=== PATIENT | male | born 1995 | race Caucasian/White ===

== ENCOUNTER 2019-08-30 11:56 | Emergency (ER) | payer SELFPAY ==
[2019-08-30 11:57] VITALS: BP 124/78; PULSE 75; RESP 16; TEMP 36.6; O2SAT 97; BMI 33.7
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
--- NOTE | 2019-08-30 13:18 | ED.DEP ---
ED Disposition - Plan for ED Patient: Instructions: Ac Joint Sprain Referrals: Merrill Rod DO [STAFF PHYSICIAN] -
== END 2019-08-30 13:41 | disposition home or self-care (01) ==
PROVIDERS: Emergency Provider Emergency Medicine
DX: S43.102A Unspecified dislocation of left acromioclavicular joint, initial encounter (principal); V89.2XXA Person injured in unspecified motor-vehicle accident, traffic, initial encounter; Y93.89 Activity, other specified; M54.5 Low back pain; Z72.0 Tobacco use
CPT/HCPCS: 72100; 73030; 99284

== ENCOUNTER 2019-09-18 14:54 | Emergency (ER) | payer SELFPAY ==
[2019-09-18 14:55] VITALS: BP 147/87; PULSE 81; RESP 15; TEMP 36.6; O2SAT 99; BMI 36.0
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
== END 2019-09-18 16:06 | disposition home or self-care (01) ==
PROVIDERS: Emergency Provider Emergency Medicine
DX: S39.012A Strain of muscle, fascia and tendon of lower back, initial encounter (principal); V89.2XXA Person injured in unspecified motor-vehicle accident, traffic, initial encounter; Y93.89 Activity, other specified; Y92.410 Unspecified street and highway as the place of occurrence of the external cause; F17.200 Nicotine dependence, unspecified, uncomplicated
CPT/HCPCS: 72100; 99282

== ENCOUNTER 2023-06-01 12:01 | Emergency (ER) | payer OTHER, SELFPAY ==
[2023-06-01 12:02] VITALS: BP 127/85; PULSE 79; RESP 18; TEMP 36.6; O2SAT 100; BMI 33.9
--- NOTE | 2023-06-01 12:15 | ED.VIS.LOWEX ---
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 When he went to stand up he felt a pop in his right knee followed by pain. She states has not been able to bear weight. He has difficulty extending the knee. Onset/Context/Timing Onset: Today and Hours Context: Sudden Onset Timing: Continuous Quality of Pain: Aching Location: Right knee area of most discomfort in the area of the medial femoral condyl Current Severity: Mild Maximum Severity: Severe Worsened by: Weightbearing and extension Relieved by: Nothing Associated Symptoms Associated Symptoms: Positive for Loss of Funtion; Negative for Parasthesia or Weakness Narrative Narrative: Patient is a 27-year-old male no significant past medical history on no medication and has no allergies. He presents with right knee pain when he luiz from a kneeling position to a standing position. He felt a pop. He developed instant continuous pain and was not able to bear weight. He denies history of prior injury. He localizes the area of most discomfort over the medial femoral condyle. He denies paresthesia, anesthesia or motor weakness. Tetanus Immunization: 5-10 years Prior similar symptoms: No Recent Illness/Hospitalization: No PFSH PFSH Medical History (Updated 06/01/23 @ 12:[address] Kvng Joseph MD) No acute medical problems Medical History no medical history no medical history Home Medications hydrocodone-acetaminophen 5-325mg 5mg-325mg 1 tab PO Q6H PRN PRN Pain 3 days #10 TABLETS 06/01/23 [Rx Last Taken Unknown] nitrofurantoin monohydrate/macrocrystals 100 mg capsule 100 mg PO Q12 #10 CAPSULES 06/01/23 [Rx Last Taken Unknown] Allergy/AdvReac Type Severity Reaction Status Date / Time No Known Allergies Allergy Verified 06/01/23 12:02 Surgical History no surgical history no surgical history Social History (Updated 06/01/23 @ 12:[address] Kvng Joseph MD) household members: significant other Smoking Status: Current every day smoker tobacco type: cigarettes alcohol intake: current alcohol intake frequency: a few times a month substance use type: does not use ROS ROS ED Constitutional Constitutional ED: Denies chills, fever(s), subjective, sweats or weight loss Musculoskeletal Musculoskeletal: Reports other Details: Right knee pain. ; Denies arthralgias, back pain, myalgias or neck pain Integumentary Denies Abrasions or rash Neurologic Neurologic: Denies headache(s), paresthesias or weakness Hematologic/Lymphatic Hematologic/Lymphatic: Denies easy bleeding or easy bruising EXAM Physical Exam Const Vital Signs: 06/01/23 12:02 Temperature 97.8 F Temperature Source Temporal Pulse Rate 79 Respiratory Rate 18 Blood Pressure 127/85 H Blood Pressure Mean 99 Pulse Ox 100 Oxygen Delivery Method Room Air Positive well nourished and well developed General Appearance ED: well developed; Negative for NAD HEENT Reports moist mucous membranes normocephalic and atraumatic Eyes PERRL Eyes Narrative: Extract muscle intact. Sclera is anicteric. Neck full ROM and supple Resp normal respiratory effort Cardio regular rate and regular rhythm Extremity Negative for normal to inspection or full ROM Extremity Narrative: There is swelling of the right knee compared to left. Area of fullness appears to be superior and medial to the right patella. There is joint line tenderness bilaterally. He is only able to extend 160 degrees. He is able to flex to 90 degrees. The patella is not ballotable. There may be a small effusion suprapatella. Varus valgus stress testing causes discomfort on the lateral side with direct pressure. There is no laxity. Cosmo's test was negative. Unable to perform modified Zev's test. DP and PT pulse are palpable. There is no pain or fullness noted in the popliteal fossa. General Extremety ED: Yes weight-bearing difficulty General Extremity: weight-bearing difficulty Neuro oriented x3, CN's II-XII intact bilaterally, moves all extremities and no sensory deficits noted Sensorium / Orientation: alert Psych mental status grossly normal Skin no wounds Lesions: no lesions Rashes: no rashes MDM MDM MDM Narrative Medical decision making narrative: X-ray was obtained to determine if there is an effusion or fracture. Suspect patient may have a meniscal injury. Exam was limited the fact that he has limited range of motion and pain. X-rays were obtained. He was medicated with NSAID and opiate analgesic orally. Radiography Chest X-Ray - ED: Read by ED Physician (4 view x-ray of the right knee was independently reviewed interpreted by me at 1228. There is a small suprapatellar effusion noted. Otherwise, the x-ray is unremarkable. There is no fracture, subluxation dislocation or bony structure abnormality. There is no asymmetry of the joint.) Discharge Plan Triage Chief Complaint: Lower Extremity Injury ED Provider: Kvng Joseph Dx/Rx/DC Orders Clinical Impression: Inability to ambulate due to right knee, Traumatic effusion of knee joint Instructions: ED Knee Effusion Prescriptions: New hydrocodone-acetaminophen [hydrocodone-acetaminophen] 5-325 mg tablet 1 tab PO Q6H PRN PRN (Reason: Pain) 3 Days Qty: 10 0RF nitrofurantoin monohyd/m-cryst [nitrofurantoin monohyd/m-cryst] 100 mg capsule 100 mg PO Q12 Qty: 10 0RF Primary Care Provider: Care Physician,No Primary Referrals: Care Physician,No Primary [Primary Care Provider] - Activity Restrictions/Additional Instructions: [facility]. Weight-bear as tolerated Apply ice 6-10 times a day Disposition Disposition: Home, Self Care
[2023-06-01] MEDS: HYDROcodone Bitartrate/Apap 5/325 Tablet PO (12:17)
[2023-06-01] MEDS: Naproxen 500 MG Tablet PO (12:17)
--- NOTE | 2023-06-01 12:20 | RAD_ITS ---
INDICATION: Injury/Pain EXAMINATION/TECHNIQUE: X-RAY - RIGHT XR Knee Complete 4 Views or More 4 VIEWS COMPARISON: No relevant prior comparison study available FINDINGS: SOFT TISSUES: No soft tissue swelling or gas. No radiopaque foreign body. BONES/JOINTS: No acute fracture or subluxation.. Normal alignment. There is lateral patellar tilt. There are mild degenerative changes of the lateral compartment and the patellofemoral articulation. No sclerotic or destructive changes observed. RAD/Knee 4 or More Views IMPRESSION: Lateral patellar tilt. Mild degenerative changes. Electronically Signed: Lakesha Gaitan MD at 12:40 EDT ,
[2023-06-01 12:56] VITALS: RESP 17
== END 2023-06-01 12:58 | disposition home or self-care (01) ==
LOC: ED 12:55
PROVIDERS: Emergency Provider Emergency Medicine; Visit Provider Emergency Medicine
DX: M25.461 Effusion, right knee (principal); F17.210 Nicotine dependence, cigarettes, uncomplicated; R26.2 Difficulty in walking, not elsewhere classified
CPT/HCPCS: 73564; 99284

== ENCOUNTER 2024-01-11 08:37 | Emergency (ER) | payer OTHER, SELFPAY ==
[2024-01-11 08:38] VITALS: BP 143/93; PULSE 69; RESP 16; TEMP 37.1; O2SAT 100; BMI 37.5
--- NOTE | 2024-01-11 08:42 | ED.VIS.GI ---
HPI HPI - GI History of Present Illness Chief Complaint: Abd Pain Informant: patient Abdominal Pain/Flank Pain Onset: Weeks Context: Gradual Onset Timing: Continuous (Since yesterday) Quality: Cramping Location: LUQ Worsened by: Nothing Relieved by: Nothing Nausea/Vomiting/Emesis GI Symptom: Positive for Nausea and Vomiting Diarrhea/Melena/Hematochezia GI Symptom: Negative for Diarrhea, Melena or Hematochezia Narrative Narrative: Patient presents with abdominal pain that has gradually gotten worse over the past couple weeks. Patient states that since yesterday has been constant. Patient describes the pain as cramping. Patient states pain is mainly over the left upper abdomen. Patient states nothing makes it better nothing makes it worse. Patient admits to some nausea and vomiting. Patient denies any diarrhea, melena, or hematochezia. Patient admits to some urinary frequency but denies any dysuria or hematuria. Patient admits to some subjective chills but denies any fevers. PFSH PFSH Medical History No acute medical problems no medical history Home Medications hydrocodone-acetaminophen 5-325mg 5mg-325mg 1 tab PO Q6H PRN PRN Pain 3 days #10 TABLETS 06/01/23 [Rx Last Taken Unknown] nitrofurantoin monohydrate/macrocrystals 100 mg capsule 100 mg PO Q12 #10 CAPSULES 06/01/23 [Rx Last Taken Unknown] omeprazole 20 mg capsule,delayed release 20 mg PO DAILY #30 CAPSULES 01/11/24 [Rx Last Taken Unknown] Allergy/AdvReac Type Severity Reaction Status Date / Time No Known Allergies Allergy Verified 01/11/24 08:37 Surgical History no surgical history no surgical history Social History household members: significant other Smoking Status: Current every day smoker tobacco type: cigarettes alcohol intake: current alcohol intake frequency: a few times a month substance use type: does not use ROS ROS ED Constitutional Constitutional ED: Reports chills; Denies fever(s) Eyes Eyes: Denies blurry vision or change in vision ENT ENT ED: Denies rhinorrhea or sore throat Cardiovascular Cardiovascular: Denies chest pain or palpitations Respiratory/Chest Respiratory/Chest: Denies cough or dyspnea Gastrointestinal Gastrointestinal: Reports abdominal pain, nausea and vomiting Genitourinary Genitourinary ED: Reports urinary frequency; Denies dysuria or hematuria Musculoskeletal Musculoskeletal: Reports neck pain; Denies back pain Integumentary Reports rash; Denies abscess Neurologic Neurologic: Denies headache(s) or weakness Allergic/Immunologic Allergic/Immunologic ED: Denies mouth swelling or urticaria EXAM Physical Exam Const Vital Signs: 01/11/24 08:38 01/11/24 10:38 Temperature 98.7 F Temperature Source Temporal Pulse Rate 69 75 Respiratory Rate 16 16 Blood Pressure 143/93 H 137/63 H Blood Pressure Mean 109 87 Pulse Ox 100 98 Oxygen Delivery Method Room Air Room Air Positive well nourished and well developed General Appearance ED: well developed and NAD HEENT Reports moist mucous membranes Neck supple and no JVD Resp normal respiratory effort and clear to auscultation bilaterally Cardio regular rate and regular rhythm GI non-distended Palpation: soft and tender LUQ; Negative for guarding or rebound tenderness present Extremity full ROM General Extremety ED: Negative for edema or tenderness General Extremity: Negative for edema Neuro CN's II-XII intact bilaterally, moves all extremities and no sensory deficits noted Sensorium / Orientation: alert Motor Exam: strength 5/5 throughout Psych mental status grossly normal MDM MDM MDM Narrative Medical decision making narrative: Differential diagnosis includes gastritis, peptic ulcer disease, ureteral calculus, pyelonephritis, pancreatitis, cholecystitis, cholelithiasis, and viral illness. CBC will be obtained to assess for leukocytosis and anemia. Comprehensive metabolic profile will be obtained to assess for hepatic function, renal function, and electrolyte abnormality. Lipase will be obtained to assess for pancreatitis. Urinalysis will be obtained to assess for urinary tract infection. CT scan of the abdomen pelvis will be obtained to assess for ureteral calculus, pyelonephritis, and splenomegaly. Lab Data Attestation: I reviewed the patient's lab results. Lab results narrative: CBC was reviewed and was within normal limits. Comprehensive metabolic profile was reviewed and was within normal limits. Lipase was reviewed and was normal. Urinalysis was reviewed. There is no evidence of urinary tract infection or hematuria. Labs: Laboratory Results - last 24 hr 01/11/24 10:36 WBC 6.2 RBC 5.16 Hgb 15.5 Hct 44.2 MCV 85.7 MCH 30.0 MCHC 35.1 RDW Std Deviation 39.2 RDW Coeff of Farhad 12.5 Plt Count 230 MPV 9.4 Immature Gran % (Auto) 0.300 Neut % (Auto) 51.4 Lymph % (Auto) 38.5 [place] % (Auto) 6.6 Eos % (Auto) 2.7 Baso % (Auto) 0.5 Absolute Neuts (auto) 3.2 Absolute Lymphs (auto) 2.39 Nucleated RBC % 0 Sodium 140 Potassium 4.1 Chloride 110 H Carbon Dioxide 26.0 Anion Gap 4 L BUN 14 Creatinine 1.02 Estim Creat Clear Calc 141.63 Est GFR (MDRD) Af Amer 113 Est GFR (MDRD) Non-Af 94 BUN/Creatinine Ratio 13.7 Glucose 91 Calcium 9.3 Total Bilirubin 0.60 AST 28 ALT 45 Alkaline Phosphatase 66 Total Protein 7.4 Albumin 4.0 Globulin 3.4 Albumin/Globulin Ratio 1.2 Lipase 36 Urine Color Straw Urine Clarity Clear Urine pH 6.0 Ur Specific [place] 1.010 Urine Protein Negative Urine Glucose (UA) Normal Urine Ketones Negative Urine Occult Blood Negative Urine Nitrite Negative Urine Bilirubin Negative Urine Urobilinogen Normal Ur Leukocyte Esterase Negative Urine RBC 0 SEEN Urine WBC 0 SEEN Ur Squamous Epith Cells 0 SEEN Urine Bacteria 0 SEEN Urine Mucus 0 SEEN Radiography Diagnostic Testing: Clinical Impression(s) from Imaging Studies Abdomen/Pelvis CT 01/11/24 10:33 IMPRESSION: Mild degree of gallbladder wall thickening although the bladder is not completely distended at this time. Minimal bibasilar linear atelectasis. Electronically Signed: Eduard Carranza MD at 11:23 EST , CT scan of the abdomen pelvis was obtained. There is mild degree of gallbladder wall thickening. There is no acute process noted. There is no free air or free fluid. This was interpreted by the radiologist was also independently reviewed by myself. Treatment and Re-Evaluation :: Patient was given IV fluids, morphine, and Zofran. Patient is feeling better on reevaluation. Patient was advised of his findings. Patient was given a prescription for omeprazole. Patient was instructed to follow-up with his primary care physician in 5 to 7 days. Patient was instructed return if worse in any way. Patient understood and was agreeable with the plan. All questions were answered. Discharge Plan Triage Chief Complaint: Abd Pain ED Provider: Manan Valentine Dx/Rx/DC Orders Clinical Impression: Left upper quadrant abdominal pain Instructions: ED Abdominal Pain Unkn Cause Male... Prescriptions: New omeprazole [omeprazole] 20 mg capsule,delayed release(DR/EC) 20 mg PO DAILY Qty: 30 0RF No Action hydrocodone-acetaminophen [hydrocodone-acetaminophen] 5-325 mg tablet 1 tab PO Q6H PRN PRN (Reason: Pain) 3 Days Qty: 10 0RF nitrofurantoin monohyd/m-cryst [nitrofurantoin monohyd/m-cryst] 100 mg capsule 100 mg PO Q12 Qty: 10 0RF Primary Care Provider: Care Physician,No Primary Referrals: Lisa Modi MD [Med Staff - Financial Examiner] - 5-7 Days Care Physician,No Primary [Primary Care Provider] - Disposition Disposition: Home, Self Care
--- OUTSIDE RECORDS SUMMARY | 2024-01-11 10:18 | XMS RPT_ITS | CCD ---
Author Name Unknown Address [address] [place] [address] Organization [facility] Care Team Providers Care Marine Fuel Dock Attendant Name Role Phone Rona Diaz Primary Care [facility] RONA DIAZ Primary Care Nimo vailable JOSELINE LOPEZ Referring Unavailable RONA DIAZ Primary Care Nimo vailable JOSELINE LOPEZ Attending Unavailable JOSELINE LOPEZ Referring Unavailable RONA DIAZ Primary Care Nimo vailable Medications Current Medications Medication Drug Class(es) Dates Sig (Normalized) Sig (Original) perflutren lipid microspheres 1.3 mL in NaCl (PF) 0.9% 10 mL injection (DEFINITY) (3 sources) Start: 07-12-2022 End: 10-11-2023 perflutren lipid microspheres 1.3 mL in NaCl (PF) 0.9% 10 mL injection (DEFINITY) 125 ml sodium chloride 9 mg/ml prefilled syringe (3 sources) Start: 07-12-2022 End: 10-11-2023 sodium chloride 0.9 % (flush) 10 mL (BD POSIFLUSH) Completed/Discontinued Medications Medication Drug Class(es) Dates Sig (Normalized) Sig (Original) brompheniramine maleate 0.4 mg/ml / dextromethorphan hydrobromide 2 mg/ml / pseudoephedrine hydrochloride 6 mg/ml oral solution (4 sources) alpha-Adrenergic Agonist, Uncompetitive I-xnfcwz-D-aspartat e Receptor Antagonist, Sigma-1 Agonist Start: 09-30-2018 take 5 mL by mouth four times daily as needed Brompheniramine -Pseudoeph-DM (BROMFED DM) 2-30-10 mg/5 mL syrup Indications: Post-viral cough syndrome Take 5 mL by mouth four times daily as needed. 118 mL 0 09/30/2018 Active Problems Problem Classification Problem Date Documented Date Episodic/Chronic Cardiac dysrhythmias (6 sources) Supraventricular tachycardia; Translations: [Supraventricular tachycardia] Onset: 07-12-2022 Chronic Cardiac dysrhythmias (9 sources) Tachycardia; Translations: [Tachycardia, unspecified] Onset: 07-12-2022 Episodic Results Test Name Value Interpretation Reference Range Facil ity Vital Signs Date Time Vital Sign Value Performing Clinician Juan muhammad 10-03-2022 16:16-0500 Body weight 120.2 kg Joseline Lopez MD Work Phone: [facility] 10-03-2022 16:16-0500 Diastolic blood pressure 76 mm[Hg] Joseline Lopez MD Work Phone: [facility] 10-03-2022 16:16-0500 Heart rate 107 /min Joseline Lopez MD Work Phone: [facility] 10-03-2022 16:16-0500 SaO2% (BldA) [Mass fraction] 98 % Joseline Lopez MD Work Phone: [facility] 10-03-2022 16:16-0500 Systolic blood pressure 118 mm[Hg] Joseline Lopez MD Work Phone: [facility] 07-12-2022 15:24-0400 Body height 177.8 cm Joseline Lopez MD Work Phone: [facility] 07-12-2022 15:24-0400 Body weight 111.04 kg Joseline Lopez MD Work Phone: [facility] 07-12-2022 15:24-0400 Diastolic blood pressure 76 mm[Hg] Joseline Lopez MD Work Phone: [facility] 07-12-2022 15:24-0400 Heart rate 101 /min Joseline Lopez MD Work Phone: [facility] 07-12-2022 15:24-0400 SaO2% (BldA) [Mass fraction] 99 % Joseline Lopez MD Work Phone: [facility] 07-12-2022 15:24-0400 Systolic blood pressure 122 mm[Hg] Joseline Lopez MD Work Phone: [facility] 07-07-2022 17:51-0400 Body temperature 98.4 [degF] Ester Luis APRN.HEALTH CARE MARKETING MANAGER Work Phone: [facility] 07-07-2022 17:51-0400 Body weight 114.67 kg Ester Luis APRN.HEALTH CARE MARKETING MANAGER Work Phone: [facility] 07-07-2022 17:51-0400 Diastolic blood pressure 78 mm[Hg] Ester Luis APRN.HEALTH CARE MARKETING MANAGER Work Phone: [facility] 07-07-2022 17:51-0400 Heart rate 83 /min Ester Luis APRN.HEALTH CARE MARKETING MANAGER Work Phone: [facility] 07-07-2022 17:51-0400 Respiratory rate 16 /min Ester Luis APRN.HEALTH CARE MARKETING MANAGER Work Phone: [facility] 07-07-2022 17:51-0400 SaO2% (BldA) [Mass fraction] 98 % Ester Luis APRN.HEALTH CARE MARKETING MANAGER Work Phone: [facility] 07-07-2022 17:51-0400 Systolic blood pressure 124 mm[Hg] Ester Luis APRN.HEALTH CARE MARKETING MANAGER Work Phone: [facility] Encounters Encounter Date Encounter Type Care Provider Facility Start: 10-03-2022 End: 10-03-2022 ambulatory JOSELINE LOPEZ Facility:[facility] Start: 10-03-2022 End: 10-03-2022 Patient encounter procedure Joseline Lopez MD Work Phone: Cardiology Plan of Treatment Date Care Activity Detail Author Start: 02-19-2026 Urine microalbumin profile DTAP,TDAP,TD (4 - Td or Tdap) [facility] Start: 07-14-2022 Influenza vaccination INFLUENZA (#1) [facility] Start: 11-13-2021 DEPRESSION ASSESSMENT DEPRESSION ASSESSMENT [facility] Start: 2016 Urine microalbumin profile DTAP,TDAP,TD (1 - Tdap) [facility] Start: 2015 HEPATITIS C SCREENING HEPATITIS C SCREENING [facility] Start: 2015 HIV SCREENING HIV SCREENING [facility] Start: 2011 PEDS TO ADULT TRANSITION ANNUAL ASSESSMENT PEDS TO ADULT TRANSITION ANNUAL ASSESSMENT [facility] Start: 2009 Adult depression screening assessment DEPRESSION SCREENING [facility] Start: 2009 PEDS TO ADULT TRANSITION INITIAL DISCUSSION PEDS TO ADULT TRANSITION INITIAL DISCUSSION [facility] Start: 2008 HPV VACCINE (1 - Male 2-dose series) HPV VACCINE (1 - Male 2-dose series) [facility] Start: 2007 MENINGOCOCCAL B: Consider based on risk (1 of 2 - Risk Bexsero 2-dose series) MENINGOCOCCAL B: Consider based on risk (1 of 2 - Risk Bexsero 2-dose series) [facility] Start: 2003 PNEUMOCOCCAL (1 - PCV) PNEUMOCOCCAL (1 - PCV) [facility] ic Start: 02-27-1998 COVID-19 VACCINE (#1) COVID-19 VACCINE (#1) [facility] Start: 1997 HEPATITIS B (1 of 3 - 3-dose series) HEPATITIS B (1 of 3 - 3-dose series) [facility] ECG B/O W INTERP (ME D OFFICE) ECG B/O W INTERP (MED OFFICE) ECG Routine Tachycardia SVT (supraventricular tachycardia) (HCC) Palpitations Ordered: 07/12/2022 [facility] Work Phone: Immunizations Immunization Date Immunization Notes Care Provider Shelby kaufman 02-20-2016 tetanus toxoid, redu naga diphtheria toxoid, and acellular pertussis vaccine, adsorbed Mariela Queden GEOTHERMAL OPERATING ENGINEER.HEALTH CARE MARKETING MANAGER Work Phone: [facility] 07-14-2009 meningococcal polysaccharide (groups A, C, Y and W-135) diphtheria toxoid conjugate vaccine (MCV4P) Mariela Horan APRN.HEALTH CARE MARKETING MANAGER Work Phone: [facility] 06-22-2009 tetanus toxoid, redu naga diphtheria toxoid, and acellular pertussis vaccine, adsorbed Mariela Queden GEOTHERMAL OPERATING ENGINEER.HEALTH CARE MARKETING MANAGER Work Phone: [facility] 07-02-2003 diphtheria, tetanus toxoids and acellular pertussis vaccine, unspecified formulation Mariela Queden GEOTHERMAL OPERATING ENGINEER.HEALTH CARE MARKETING MANAGER Work Phone: [facility] 07-02-2003 measles, mumps and rubella virus vaccine Mariela Queden GEOTHERMAL OPERATING ENGINEER.HEALTH CARE MARKETING MANAGER Work Phone: [facility] 07-02-2003 poliovirus vaccine, inactivated Mariela Queden GEOTHERMAL OPERATING ENGINEER.HEALTH CARE MARKETING MANAGER Work Phone: [facility] 09-04-2002 hepatitis B vaccine, pediatric or pediatric/adolescent dosage Mariela Queden GEOTHERMAL OPERATING ENGINEER.HEALTH CARE MARKETING MANAGER Work Phone: [facility] 07-13-2001 measles, mumps and rubella virus vaccine Mariela Queden GEOTHERMAL OPERATING ENGINEER.[facility] Work Phone: [facility] 04-16-2001 hepatitis B vaccine, pediatric or pediatric/adolescent dosage Mariela Queden GEOTHERMAL OPERATING ENGINEER.[facility] Work Phone: [facility] 03-14-2001 poliovirus vaccine, inactivated Mariela Queden GEOTHERMAL OPERATING ENGINEER.[facility] Work Phone: [facility] 03-13-2001 hepatitis B vaccine, pediatric or pediatric/adolescent dosage Mariela Queden GEOTHERMAL OPERATING ENGINEER.[facility] Work Phone: [facility] Payers Date Payer Category Payer Unknown [employer] PPO [id number] 2021-Present [phone] [address] [place] [address] PPO [id number] 2021 Unknown [id number] Social History Date Type Detail Facility Start: 09-30-2018 [facility] Work Phone: History of tobacco use Cigarette Smoker C [facility] Work Phone: Start: 09-30-2018 End: 10-03-2022 Cigarettes smoked current (pack per day) - Reported 0.5 [facility] Start: 09-30-2018 End: 10-03-2022 Tobacco use and exposure Smokeless tobacco non-user [facility] Work Phone: Start: 07-07-2022 Alcohol intake Current non-dr metal box maker of alcohol (finding) [facility] Start: 1997 Sex Assigned At Not on file C [facility] Start: 06-27-2022 End: 07-12-2022 Exposure to SARS-CoV-2 (event) Not sure [facility] Start: 07-12-2022 End: 10-03-2022 Tobacco smoking status NHIS Ex-smoker [facility] History of tobacco use Current smoker [facility] Start: 07-12-2022 End: 10-03-2022 Alcohol intake Current drinker of alcohol (finding) [facility] Start: 10-03-2022 Tobacco Comment Vapes [facility] Clinical Notes 07-07-2022 to 10-03-2022 Joseline Lopez MD - 10/03/2022 4:20 PM ESTTelephone Encounter - Sonjajohnson Martinez - 07/14/2022 11:23 AM EDTMarlene Briseno LPN - 07/12/2022 3:22 PM EDT Note Date & Type Note Facility 10-03-2022 Note HNO ID: [id number] Author: Joseline Lopez MD Service: ? Author Type: Physician Type: Progress Notes Filed: 10/03/2022 4:56 PM Note Text: [facility] [place] ([facility] [address] [address] OUTPATIENT VISIT DATE 10/03/2022 PRIMARY CARE PHYSICIAN: Rona Nelson MD [address] [place] [address] REFERRING PHYSICIAN: Ester Luis [address] [facility] [address] CHIEF COMPLAINT: Palpitations HISTORY OF PRESENT ILLNESS: Mr. Francisco is a 27 year old gentleman who is here for follow-up of recent testing and palpitations. Since his last visit, he tells me has had no further episodes of heart racing or palpitations. His functional capacity is remained adequate. He has not made any significant changes in his lifestyle. PAST MEDICAL HISTORY Diagnosis Date Sinus tachycardia History reviewed. No pertinent surgical history. SOCIAL HISTORY Social History Tobacco Use Smoking status: Former Packs/day: 0.50 Years: 1.00 Pack years: 0.50 Types: Cigarettes Smokeless tobacco: Never Tobacco comments: Vapes Vaping Use Vaping Use: Some days Substances: Nicotine Substance Use Topics Alcohol use: Yes Alcohol/week: 6.0 standard drinks Types: 6 Cans of beer per week Drug use: No FAMILY HISTORY Family history unknown: Yes ALLERGIES: ALLERGIES No Known Allergies MEDICATIONS: Cpuuwoxtnvqhiyl-Cicwozwem-VE (BROMFED DM) 2-30-10 mg/5 mL syrupTake 5 mL by mouth four times daily as needed.Disp: 118 mLRfl: 0 (Patient not taking: No sig reported) REVIEW OF SYSTEMS: Review of Systems Constitutional: Negative for chills, fever, malaise/fatigue and weight loss. HENT: Negative for hearing loss and sore throat. Eyes: Negative for blurred vision and double vision. Respiratory: Negative. Cardiovascular: Positive for palpitations. Gastrointestinal: Negative. Genitourinary: Negative for dysuria, frequency, hematuria and urgency. Musculoskeletal: Negative. Skin: Negative. Neurological: Negative for dizziness, seizures, loss of consciousness, weakness and headaches. Endo/Heme/Allergies: Negative for environmental allergies. Does not bruise/bleed easily. Psychiatric/Behavioral: Negative for depression. PHYSICAL EXAMINATION: BP 118/76 Pulse 107 Wt 265 lb (120.2kg) SpO2 98% General: Fit appearing gentleman sitting appears comfortable no apparent distress. He is alert and oriented x3 HEENT: Carotid upstrokes are brisk bilaterally without bruits. No JVD appreciated. Pulmonary: Lungs are clear no rales, wheezes, rhonchi Cardiovascular: PMI is in the midclavicular line. There is a normal S1, S2 with regular rate and rhythm. No murmurs, rubs, or gallops appreciated. Abdomen: Soft nontender nondistended with positive bowel sounds. Extremities: Warm, well-perfused, no lower extremity edema. 2+ distal pulses. CARDIOVASCULAR MEDICINE TESTING: ECG in the office 07/12/2022: Normal sinus rhythm with sinus arrhythmia. No significant ST or T wave changes Echocardiogram 07/15/2022: - The left ventricle is normal in size. Left ventricular systolic function is normal. EF = 62 ? 5% (2D biplane) Normal left ventricular diastolic function. - The right ventricle is normal in size. Right ventricular systolic function is normal. - There are no significant valvular abnormalities. I have personally reviewed the Electrocardiogram and Laboratory Testing. IMPRESSION: Mr. Francisco is a 26 year old gentleman with a history of palpitations possible SVT who is here for follow-up after recent testing. PLAN AND RECOMMENDATIONS: 1. SVT (supraventricular tachycardia) (HCC) - ICD9: 427.89, ICD10: I47.1 (primary diagnosis) Patient doing well with improvement in symptoms since his last visit. I recommended continuing lifestyle modification. Patient has increased frequency of episodes may consider 14-day Holter monitor. Results of echocardiogram were reviewed with the patient during the office visit. 2. Palpitations - ICD9: 785.1, ICD10: R00.2 Joseline Lopez MD [facility] 10-03-2022 History of Presen t illness Narrative Images from the original note were not included. [facility] [place] ([facility] ([facility] [address] [facility] [id number] OUTPATIENT VISIT DATE 10/03/2022 PRIMARY CARE PHYSICIAN: Rona Nelson MD [address] [place] [address] REFERRING PHYSICIAN: Ester Luis [address] [place] [id number] CHIEF COMPLAINT: Palpitations HISTORY OF PRESENT ILLNESS: Mr. Francisco is a 27 year old gentleman who is here for follow-up of recent testing and palpitations. Since his last visit, he tells me has had no further episodes of heart racing or palpitations. His functional capacity is remained adequate. He has not made any significant changes in his lifestyle. PAST MEDICAL HISTORY Diagnosis Date Sinus tachycardia History reviewed. No pertinent surgical history. SOCIAL HISTORY Social History Tobacco Use Smoking status: Former Packs/day: 0.50 Years: 1.00 Pack years: 0.50 Types: Cigarettes Smokeless tobacco: Never Tobacco comments: Vapes Vaping Use Vaping Use: Some days Substances: Nicotine Substance Use Topics Alcohol use: Yes Alcohol/week: 6.0 standard drinks Types: 6 Cans of beer per week Drug use: No FAMILY HISTORY Family history unknown: Yes ALLERGIES: ALLERGIES No Known Allergies MEDICATIONS: Ukdprsdhxptukhx-Qxroejgbt-FL (BROMFED DM) 2-30-10 mg/5 mL syrup^Take 5 mL by mouth four times daily as needed.^Disp: 118 mL^Rfl: 0 (Patient not taking: No sig reported) REVIEW OF SYSTEMS: Review of Systems Constitutional: Negative for chills, fever, malaise/fatigue and weight loss. HENT: Negative for hearing loss and sore throat. Eyes: Negative for blurred vision and double vision. Respiratory: Negative. Cardiovascular: Positive for palpitations. Gastrointestinal: Negative. Genitourinary: Negative for dysuria, frequency, hematuria and urgency. Musculoskeletal: Negative. Skin: Negative. Neurological: Negative for dizziness, seizures, loss of consciousness, weakness and headaches. Endo/Heme/Allergies: Negative for environmental allergies. Does not bruise/bleed easily. Psychiatric/Behavioral: Negative for depression. PHYSICAL EXAMINATION: BP 118/76 Pulse 107 Wt 265 lb (120.2kg) SpO2 98% General: Fit appearing gentleman sitting appears comfortable no apparent distress. He is alert and oriented x3 HEENT: Carotid upstrokes are brisk bilaterally without bruits. No JVD appreciated. Pulmonary: Lungs are clear no rales, wheezes, rhonchi Cardiovascular: PMI is in the midclavicular line. There is a normal S1, S2 with regular rate and rhythm. No murmurs, rubs, or gallops appreciated. Abdomen: Soft nontender nondistended with positive bowel sounds. Extremities: Warm, well-perfused, no lower extremity edema. 2+ distal pulses. CARDIOVASCULAR MEDICINE TESTING: ECG in the office 07/12/2022: Normal sinus rhythm with sinus arrhythmia. No significant ST or T wave changes Echocardiogram 07/15/2022: - The left ventricle is normal in size. Left ventricular systolic function is normal. EF = 62 5% (2D biplane) Normal left ventricular diastolic function. - The right ventricle is normal in size. Right ventricular systolic function is normal. - There are no significant valvular abnormalities. I have personally reviewed the Electrocardiogram and Laboratory Testing. IMPRESSION: Mr. Francisco is a 26 year old gentleman with a history of palpitations possible SVT who is here for follow-up after recent testing. PLAN AND RECOMMENDATIONS: 1. SVT (supraventricular tachycardia) (HCC) - ICD9: 427.89, ICD10: I47.1 (primary diagnosis) Patient doing well with improvement in symptoms since his last visit. I recommended continuing lifestyle modification. Patient has increased frequency of episodes may consider 14-day Holter monitor. Results of echocardiogram were reviewed with the patient during the office visit. 2. Palpitations - ICD9: 785.1, ICD10: R00.2 Joseline Lopez MD documented in this encounter [facility] 07-14-2022 Miscellaneous Notes No Show Documentation Danica Francisco no showed for an appointment on 07/14/22 with Mariela Horan APRN.CNP at 9:40 am. He was scheduled for a new patient to establish care. I called and left a message for the patient regarding his missed appointment. Resources discussed/offered to patient: to return our call and reschedule. No show determined to be fault of patient: Yes This is the patients first no show in the last 12 months. Patient was rescheduled for n/a. Letter mailed : No -scheduled as a new patient. Is this the Third or Fourth No Show ? No Sonja Martinez July 14, 2022 11:24 AM documented in this encounter [facility] 07-12-2022 Note HNO ID: [id number] Author: Joseline Lopez MD Service: ? Author Type: Physician Type: Progress Notes Filed: 07/12/2022 5:38 PM Note Text: [facility] Card[facility] [place] ([facility] ([facility] [address] [facility] [address] OUTPATIENT VISIT DATE 07/12/2022 PRIMARY CARE PHYSICIAN: Rona Nelson MD [address] [facility], [facility] REFERRING PHYSICIAN: Ester Luis [address] [facility] [address] CHIEF COMPLAINT: Palpitations HISTORY OF PRESENT ILLNESS: Mr. Francisco is a 26 year old male who presents today for evaluation of palpitations. He has had 2 concerning events over the past few months. We will start with increased heart rate to 120-150 beats a minute. The most recent lasted about 10 minutes. He became nervous with increased heart rate and had deep breathing. He described numbness and tingling in his fingers. He did not have chest pain or pressure. Maximum heart rate was around 180 bpm. He states that he was lightheaded during the onset of the episode. He had a similar episode in April. He denies any symptoms of palpitations or heart racing before that episode. He does use nicotine in the form of vaping and has a prior smoking history. No significant family history of premature coronary disease. From a functional standpoint, he does well and is active in his current employment. He has not had decline in his functional capacity or symptoms concerning for angina. PAST MEDICAL HISTORY Diagnosis Date Sinus tachycardia History reviewed. No pertinent surgical history. SOCIAL HISTORY Social History Tobacco Use Smoking status: Former Packs/day: 0.50 Years: 1.00 Pack years: 0.50 Types: Cigarettes Smokeless tobacco: Never Substance Use Topics Alcohol use: Yes Alcohol/week: 6.0 standard drinks Types: 6 Cans of beer per week Drug use: No FAMILY HISTORY Family history unknown: Yes ALLERGIES: ALLERGIES No Known Allergies MEDICATIONS: Kpocvodmjkmujvl-Aphfdsjrv-UU (BROMFED DM) 2-30-10 mg/5 mL syrupTake 5 mL by mouth four times daily as needed.Disp: 118 mLRfl: 0 (Patient not taking: No sig reported) REVIEW OF SYSTEMS: Review of Systems Constitutional: Negative for chills, fever, malaise/fatigue and weight loss. HENT: Negative for hearing loss and sore throat. Eyes: Negative for blurred vision and double vision. Respiratory: Negative. Cardiovascular: Positive for palpitations. Gastrointestinal: Negative. Genitourinary: Negative for dysuria, frequency, hematuria and urgency. Musculoskeletal: Negative. Skin: Negative. Neurological: Negative for dizziness, seizures, loss of consciousness, weakness and headaches. Endo/Heme/Allergies: Negative for environmental allergies. Does not bruise/bleed easily. Psychiatric/Behavioral: Negative for depression. PHYSICAL EXAMINATION: BP 122/76 Pulse 101 Ht 5' 10 (1.78m) Wt 244 lb 12.8 oz (111.0kg) SpO2 99[room air]% BMI 35.13 kg/(m2). General: Fit appearing gentleman sitting appears comfortable no apparent distress. He is alert and oriented x3 HEENT: Carotid upstrokes are brisk bilaterally without bruits. No JVD appreciated. Pulmonary: Lungs are clear no rales, wheezes, rhonchi Cardiovascular: PMI is in the midclavicular line. There is a normal S1, S2 with regular rate and rhythm. No murmurs, rubs, or gallops appreciated. Abdomen: Soft nontender nondistended with positive bowel sounds. Extremities: Warm, well-perfused, no lower extremity edema. 2+ distal pulses. CARDIOVASCULAR MEDICINE TESTING: ECG in the office 07/12/2022: Normal sinus rhythm with sinus arrhythmia. No significant ST or T wave changes I have personally reviewed the Electrocardiogram and Laboratory Testing. IMPRESSION: Mr. Francisco is a 26 year old gentleman with a history of palpitations possible SVT who is referred for evaluation. PLAN AND RECOMMENDATIONS: Wide differential for his SVT and palpitations. I recommend that he try vagal maneuvers if he has recurrent symptoms. I have ordered a 2D echocardiogram for assessment of structural heart disease. Given the infrequent nature of his symptoms is unlikely to benefit from a Holter or event monitor. May consider further testing pending the outcome of his echocardiogram and follow-up evaluation 1. Tachycardia - ICD9: 785.0, ICD10: R00.0 - ECG B/O W INTERP (MED OFFICE) - ECHO - PERFLUTREN LIPID MICROSPHERES 1.1 MG/ML INJECTION IN NS 10 ML - SODIUM CHLORIDE 0.9 % (FLUSH) INJECTION SYRINGE 2. SVT (supraventricular tachycardia) (HCC) - ICD9: 427.89, ICD10: I47.1 - ECG B/O W INTERP (MED OFFICE) - ECHO - PERFLUTREN LIPID MICROSPHERES 1.1 MG/ML INJECTION IN NS 10 ML - SODIUM CHLORIDE 0.9 % (FLUSH) INJECTION SYRINGE 3. Palpitations - ICD9: 785.1, ICD10: R (more content not included)... [facility] 07-12-2022 Nurse Note Patient reports feeling heart racing (tachycardia), most recent episode a couple days ago and feeling chest cramps at times. No other cardiac complaints or symptoms. documented in this encounter [facility] 07-12-2022 History of Presen t illness Narrative Images from the original note were not included. [facility] SECTION OF [facility]ARDIOLOGY [facility] [place] ([facility] Physician Office Bldg POB)) [address] [facility] [address] OUTPATIENT VISIT DATE 07/12/2022 PRIMARY CARE PHYSICIAN: Rona Nelson MD [address] [place] [address] REFERRING PHYSICIAN: Ester Luis [address] [facility] [address] CHIEF COMPLAINT: Palpitations HISTORY OF PRESENT ILLNESS: Mr. Francisco is a 26 year old male who presents today for evaluation of palpitations. He has had 2 concerning events over the past few months. We will start with increased heart rate to 120-150 beats a minute. The most recent lasted about 10 minutes. He became nervous with increased heart rate and had deep breathing. He described numbness and tingling in his fingers. He did not have chest pain or pressure. Maximum heart rate was around 180 bpm. He states that he was lightheaded during the onset of the episode. He had a similar episode in April. He denies any symptoms of palpitations or heart racing before that episode. He does use nicotine in the form of vaping and has a prior smoking history. No significant family history of premature coronary disease. From a functional standpoint, he does well and is active in his current employment. He has not had decline in his functional capacity or symptoms concerning for angina. PAST MEDICAL HISTORY Diagnosis Date Sinus tachycardia History reviewed. No pertinent surgical history. SOCIAL HISTORY Social History Tobacco Use Smoking status: Former Packs/day: 0.50 Years: 1.00 Pack years: 0.50 Types: Cigarettes Smokeless tobacco: Never Substance Use Topics Alcohol use: Yes Alcohol/week: 6.0 standard drinks Types: 6 Cans of beer per week Drug use: No FAMILY HISTORY Family history unknown: Yes ALLERGIES: ALLERGIES No Known Allergies MEDICATIONS: Zepjctqglblxpcf-Qigmomqmq-VA (BROMFED DM) 2-30-10 mg/5 mL syrup^Take 5 mL by mouth four times daily as needed.^Disp: 118 mL^Rfl: 0 (Patient not taking: No sig reported) REVIEW OF SYSTEMS: Review of Systems Constitutional: Negative for chills, fever, malaise/fatigue and weight loss. HENT: Negative for hearing loss and sore throat. Eyes: Negative for blurred vision and double vision. Respiratory: Negative. Cardiovascular: Positive for palpitations. Gastrointestinal: Negative. Genitourinary: Negative for dysuria, frequency, hematuria and urgency. Musculoskeletal: Negative. Skin: Negative. Neurological: Negative for dizziness, seizures, loss of consciousness, weakness and headaches. Endo/Heme/Allergies: Negative for environmental allergies. Does not bruise/bleed easily. Psychiatric/Behavioral: Negative for depression. PHYSICAL EXAMINATION: BP 122/76 Pulse 101 Ht 5' 10 (1.78m) Wt 244 lb 12.8 oz (111.0kg) SpO2 99[room air]% BMI 35.13 kg/(m^2). General: Fit appearing gentleman sitting appears comfortable no apparent distress. He is alert and oriented x3 HEENT: Carotid upstrokes are brisk bilaterally without bruits. No JVD appreciated. Pulmonary: Lungs are clear no rales, wheezes, rhonchi Cardiovascular: PMI is in the midclavicular line. There is a normal S1, S2 with regular rate and rhythm. No murmurs, rubs, or gallops appreciated. Abdomen: Soft nontender nondistended with positive bowel sounds. Extremities: Warm, well-perfused, no lower extremity edema. 2+ distal pulses. CARDIOVASCULAR MEDICINE TESTING: ECG in the office 07/12/2022: Normal sinus rhythm with sinus arrhythmia. No significant ST or T wave changes I have personally reviewed the Electrocardiogram and Laboratory Testing. IMPRESSION: Mr. Francisco is a 26 year old gentleman with a history of palpitations possible SVT who is referred for evaluation. PLAN AND RECOMMENDATIONS: Wide differential for his SVT and palpitations. I recommend that he try vagal maneuvers if he has recurrent symptoms. I have ordered a 2D echocardiogram for assessment of structural heart disease. Given the infrequent nature of his symptoms is unlikely to benefit from a Holter or event monitor. May consider further testing pending the outcome of his echocardiogram and follow-up evaluation 1. Tachycardia - ICD9: 785.0, ICD10: R00.0 - ECG B/O W INTERP (MED OFFICE) - ECHO - PERFLUTREN LIPID MICROSPHERES 1.1 MG/ML INJECTION IN NS 10 ML - SODIUM CHLORIDE 0.9 % (FLUSH) INJECTION SYRINGE 2. SVT (supraventricular tachycardia) (HCC) - ICD9: 427.89, ICD10: I47.1 - ECG B/O W INTERP (MED OFFICE) - ECHO - PERFLUTREN LIPID MICROSPHERES 1.1 MG/ML INJECTION IN NS 10 ML - SODIUM CHLORIDE 0.9 % (FLUSH) INJECTION SYRINGE 3. Palpitations - ICD9: 785.1, ICD10: R00.2 - ECG B/O W INTERP (MED OFFICE) - ECHO - PERFLUTREN LIPID MICROSPHERES 1.1 MG/ML INJECTION IN NS 10 ML - SODIUM CHLORIDE 0.9 % (FLUSH) INJECTION SYRINGE Joseline Lopez MD documented in this encounter [facility] 07-07-2022 Note HNO ID: [id number] Author: Ester Luis APRN.HEALTH CARE MARKETING MANAGER Service: ? Author Type: Nurse Practitioner Type: Progress Notes Filed: 07/07/2022 7:00 PM Note Text: Subjective Patient came in with complaints of felling his heart beating fast and feeling dizzy and shaky. Patient said this happened about 2 months ago but was not this bad. Patient said he feels back to normal now. He said his watch said his heart rate was 180 at one point. Denies any symptoms currently. Has not seen a provider in many years. The history is provided by the patient. No pipe wrapping machine operator was used. Dizziness Associated symptoms include dizziness. Review of Systems Constitutional: Negative. Skin: Negative. Neurological: Positive for dizziness. Objective Physical Exam Constitutional: Appearance: Normal appearance. Pulmonary: Effort: Pulmonary effort is normal. Neurological: Mental Status: He is alert. No past medical history on file. No past surgical history on file. ALLERGIES Patient has no known allergies. MEDICATIONS Mfltqzbtdpwvimi-Cophdqjwc-IA (BROMFED DM) 2-30-10 mg/5 mL syrup Take 5 mL by mouth four times daily as needed. (Patient not taking: Reported on 07/07/2022) No family history on file. Social History Tobacco Use Smoking status: Every Day Packs/day: 0.50 Years: 1.00 Pack years: 0.50 Types: Cigarettes Smokeless tobacco: Never Substance Use Topics Alcohol use: No Drug use: No ASSESSMENT/PLAN: 1. Tachycardia - ICD9: 785.0, ICD10: R00.0 - CONSULT TO CARDIOLOGY At this time set up with PCP office as well as cardiology. Will go to ER right away if anything like this happens again. Ester Luis APRN.[facility] 07-07-2022 History of Presen t illness Narrative Subjective Patient came in with complaints of felling his heart beating fast and feeling dizzy and shaky. Patient said this happened about 2 months ago but was not this bad. Patient said he feels back to normal now. He said his watch said his heart rate was 180 at one point. Denies any symptoms currently. Has not seen a provider in many years. The history is provided by the patient. No pipe wrapping machine operator was used. Dizziness Associated symptoms include dizziness. Review of Systems Constitutional: Negative. Skin: Negative. Neurological: Positive for dizziness. Objective Physical Exam Constitutional: Appearance: Normal appearance. Pulmonary: Effort: Pulmonary effort is normal. Neurological: Mental Status: He is alert. No past medical history on file. No past surgical history on file. ALLERGIES Patient has no known allergies. MEDICATIONS Csuripsbepthakl-Lerlhzzuz-SP (BROMFED DM) 2-30-10 mg/5 mL syrup Take 5 mL by mouth four times daily as needed. (Patient not taking: Reported on 07/07/2022) No family history on file. Social History Tobacco Use Smoking status: Every Day Packs/day: 0.50 Years: 1.00 Pack years: 0.50 Types: Cigarettes Smokeless tobacco: Never Substance Use Topics Alcohol use: No Drug use: No ASSESSMENT/PLAN: 1. Tachycardia - ICD9: 785.0, ICD10: R00.0 - CONSULT TO CARDIOLOGY At this time set up with PCP office as well as cardiology. Will go to ER right away if anything like this happens again. Ester Luis APRN.CNP documented in this encounter [facility] Diagnosis Tachycardia Tachycardia, unspecified SVT (supraventricular tachycardia) (HCC) Other specified cardiac dysrhythmias Palpitations [facility] Diagnosis SVT (supraventricular tachycardia) (HCC)- Primary Other specified cardiac dysrhythmias Palpitations [facility]narrative[facility] Outpatient Procedure (Routine) - Pending Review Specialty Diagnoses / Procedures Referred By Ameena lloyd Referred To Contact [facility] Diagnoses Tachycardia SVT (supraventricular tachycardia) (HCC) Palpitations Procedures ECHO ECHO TTHRC R-T 2D W/WOM-MODE COMPL SPEC&COLR D Joseline Lopez MD [address] [place] [id number] [facility] [address] [place] [id number] Referral ID Status Reason Start Date Expiration Date Visits Requested Visits Authorized [id number] Pending Review Auto-Generat ed Referral 07/12/2022 07/12/2023 1 1 [facility] Reason for Referral Specialty Diagnoses / Procedures Referred By Ameena lloyd Referred To Contact Cardiology Diagnoses Tachycardia Procedures CONSULT TO CARDIOLOGY OFFICE/OUTPATIENT [facility] MDM 60-74 MINUTES Ester Luis APRN.CNP [address] [place] [address] Referral ID Status Reason Start Date Expiration Date Visits Requested Visits Authorized [id number] Pending Review PCP Requested Referral 07/07/2022 07/07/2023 1 1 Summary Purpose Family History No Family History Records FoundNo Family History Records Found Advance Directives No Advanced Directives Records FoundNo Advanced Directives Records Found Additional Source Comments Source Comments (unrecognize d section and content) In the event this informatio n is protected by the Federal Confidentiality of Alcohol and Drug Abuse Patient Records regulations: The Federal rules restrict any use of the information to criminally investigate or prosecute any alcohol or drug abuse patient.[facility] the event this information is protected by the Federal Confidentiality of Alcohol and Drug Abuse Patient Records regulations: The Federal rules restrict any use of the information to criminally investigate or prosecute any alcohol or drug abuse patient.[facility] the event this information is protected by the Federal Confidentiality of Alcohol and Drug Abuse Patient Records regulations: The Federal rules restrict any use of the information to criminally investigate or prosecute any alcohol or drug abuse patient.[facility] the event this information is protected by the Federal Confidentiality of Alcohol and Drug Abuse Patient Records regulations: The Federal rules restrict any use of the information to criminally investigate or prosecute any alcohol or drug abuse patient.[facility] Reason for Visit (unrecogniz ed section and content) Specialty Diagnoses / Procedures Referred By Contac t Referred To Contact Family Practice / [facility] Diagnoses Shaky episode earlier felt shakey/almost passed out lasted-10minutes, water helped. happened once before Procedures OFFICE/OUTPATIENT ESTABLISHED MOD MDM 30-39 MIN NEW SAME DAY MD Toby Marie Dominique, APRN.HEALTH CARE MARKETING MANAGER [address] [place] [address] Referral ID Status Reason Start Date Expiration Date Visits Re quested Visits Authorized [id number] Closed 07/07/2022 11/12/2022 1 1 Reason Comments Cardiology Follow Up tachycardia Specialty Diagnoses / Procedures Referred By Contac t Referred To Contact Cardiology / CARDIOLOGY Diagnoses Tachycardia Procedures CONSULT TO CARDIOLOGY OFFICE/OUTPATIENT NEW [facility] MDM 60-74 MINUTES Ester Luis APRN.HEALTH CARE MARKETING MANAGER [address] [place] [address] [facility] [address] [place] [address] Referral ID Status Reason Start Date Expiration Date V isits Requested Visits Authorized [id number] Closed PCP Requested Referral 07/08/2022 11/12/2022 1 1 Reason Comments Missed Appointment The patient has yet to establish. Specialty Diagnoses / Procedures Referred By Contac t Referred To Contact [facility] Diagnoses Follow-up exam follow up Procedures OFFICE/OUTPATIENT ESTABLISHED MOD [facility] 30-39 MIN follow up Joseline Lopez MD [address] [address] Card Admin [facility] [address] [place] [address] Referral ID Status Reason Start Date Expiration Date Visits Re quested Visits Authorized [id number] Closed 10/03/2022 11/12/2022 1 1 Care Teams (unrecognized sec tion and content) [employer] Att[employer] Relationship Specialty Start Date End Date Rona Diaz PCP - General Pediatrics 05/06/11 [employer] Att[employer] Relationship Specialty Start Date End Date Rona Diaz PCP - General Pediatrics 05/06/11 [employer] Att[employer] Relationship Specialty Start Date End Date Rona Diaz PCP - General Pediatrics 05/06/11 (unrecognized sect ion and content) No Status Records FoundNo Status Records Found INFORMATION SOURCE (unrecogn ized section and content) DATE CREATED AUTHOR AUTHOR'S ORGANIZ ATION 10/04/2022 [facility] FOR RECORDS PERTAINING TO PATIENTS WHO ARE OR HAVE BEEN ENROLLED IN A CHEMICAL DEPENDENCY/SUBSTANCEABUSE PROGRAM, SOME INFORMATION MAY BE OMITTED. This clinical summary was aggregated from multiple sources. Caution should be exercised in using it in the provision of clinical care. This summary normalizes information from multiple sources, and as a consequence, information in this document may materially change the coding, format and clinical context of patient data. In addition, data may be omitted in some cases. CLINICAL DECISIONS SHOULD BE BASED ON THE PRIMARY CLINICAL RECORDS. [employer] [facility]. provides no warranty or guarantee of the accuracy or completeness of information in this document.
--- NOTE | 2024-01-11 10:33 | CT_ITS ---
STUDY: CT ABDOMEN AND PELVIS WITHOUT CONTRAST REASON FOR EXAM: Male, 28 years old. Left lower quadrant pain. RADIATION DOSAGE (If Supplied By Facility): CTDIvol = ( 19.39 ) mGy, DLP = ( 1104.84 ) mGycm TECHNIQUE: Transaxial images were obtained from the dome of the diaphragm to the symphysis pubis without oral contrast, and without intravenous contrast. Sagittal and coronal images were reconstructed. Individualized dose optimization techniques were used for this CT. COMPARISON: None. FINDINGS: Minimal bibasilar atelectasis. The visualized portions of the heart are within normal limits. Normal liver. Normal gallbladder and extrahepatic biliary system. Normal spleen. Normal pancreas. Normal bilateral adrenal glands. Normal right kidney. Normal left kidney. There is a small hiatal hernia. Normal small intestine. There are scattered colonic diverticula consistent with diverticulosis. The appendix is visualized and appears normal. Normal abdominal aorta. Normal inferior vena cava. Normal retroperitoneum. Mild degree of diffuse bladder wall thickening although the bladder is not completely distended. Mild degree of cystitis should BE ruled out. Normal abdominal wall. Normal osseous structures. CT/Abdomen/Pelvis without Cont IMPRESSION: Mild degree of gallbladder wall thickening although the bladder is not completely distended at this time. Minimal bibasilar linear atelectasis. Electronically Signed: Eduard Carranza MD at 11:23 EST ,
[2024-01-11 10:38] VITALS: BP 137/63; PULSE 75; RESP 16; O2SAT 98
[2024-01-11] MEDS: Ondansetron 4 MG/2 ML Vial IV (10:44)
[2024-01-11] MEDS: 0.9% Normal Saline (1000mL) 1,000 ML 1000 ML IV (10:44)
[2024-01-11] MEDS: Morphine 4 MG/ML Syringe IV (10:44)
[2024-01-11 11:00] LABS: Bacteria 0 SEEN /hpf (None Seen); Mucous, Urine 0 SEEN /hpf (<or=2+); Red Blood Cells-Urine 0 SEEN /hpf (0-5); Squamous Epithelial Cells - UA 0 SEEN /hpf (0-5); White Blood Cells 0 SEEN /hpf (0-5)
[2024-01-11 11:08] LABS: Color, Urine Straw (Yellow); Glucose, Dipstick Normal (Normal); Ketone-Dipstick Negative (Negative); Leukocyte Esterase-Dipstick Negative /ul (Negative); Nitrite-Dipstick Negative (Negative); Occult Blood-Urine Negative /ul (Negative); Protein-Dipstick Negative (Negative); Urine Bilirubin Dipstick Negative (Negative); Urine Clarity Clear (Clear); Urine Urobilinogen Normal (Normal)
[2024-01-11 11:09] LABS: Absolute Lymphocyte Count 2.39 X10^3/uL (0.83-4.51); Absolute Neutrophil Count 3.2 X10^3/uL (2.0-7.7); Basophil# 0.03 X10^3/uL; Basophil% 0.5 % (0-1); Eosinophil# 0.17 X10^3/uL; Eosinophils% 2.7 % (0-5); Hematocrit 44.2 % (40-54); Hemoglobin 15.5 g/dL (13.0-16.5); Lymphocyte # 2.39 X10^3/ul (0.83-4.51); Lymphocyte % 38.5 % (19-41); Mean Corp Hgb Conc 35.1 g/dL (32-36); Mean Corpuscular Volume 85.7 fL (80-94); Mean Platelet Vol. 9.4 fl (6.2-12.0); Monocyte# 0.41 X10^3/uL; Monocyte% 6.6 % (0-10); NRBC Flagged by Analyzer 0 % (0-5); Neutrophil # 3.18 X10^3/uL (2.7-7.7); Neutrophil % 51.4 % (47-70); Platelet Count 230 K/mm3 (150-450); RBC Distribution Width CV 12.5 % (11.6-14.6); RBC Distribution Width SD 39.2 fl (35.1-43.9); Red Blood Count 5.16 M/mm3 (4.6-6.2); White Blood Count 6.2 K/mm3 (4.4-11.0)
[2024-01-11 11:22] LABS: ALB/GLOB Ratio 1.2 RATIO (0.9-2.4); AST(SGOT) 28 U/L (15-37); Alanine Aminotransfer ALT/SGPT 45 U/L (16-61); Alkaline Phosphatase 66 U/L (45-117); Anion Gap 4 (5-15); BUN 14 mg/dL (7-18); BUN/Creat Ratio 13.7 RATIO (10-20); Calcium,Total 9.3 mg/dL (8.5-10.1); Chloride 110 mmol/L (98-107); Creatinine, Serum 1.02 mg/dL (0.70-1.30); EST Glomerular Filtration Rate 94 mL/min (>60); Est Glom Filt Rate - Afr Amer 113 mL/min (>60); Estimated Creatinine Clearance 141.63 ml/min; Globulin 3.4 g/dL (2.2-4.2); Glucose 91 mg/dL (74-106); Lipase 36 U/L (13-75); Potassium 4.1 mmol/L (3.5-5.1); Protein, Total 7.4 g/dL (6.4-8.2); Sodium Level 140 mmol/L (136-145)
[2024-01-11 12:09] VITALS: BP 138/79; PULSE 88; RESP 16; TEMP 36.6; O2SAT 99
== END 2024-01-11 12:11 | disposition home or self-care (01) ==
PROVIDERS: Emergency Provider Emergency Medicine; Visit Provider Emergency Medicine
DX: R10.12 Left upper quadrant pain (principal); R11.2 Nausea with vomiting, unspecified; F17.210 Nicotine dependence, cigarettes, uncomplicated
CPT/HCPCS: 74176; 80053; 81001; 83690; 85025; 96361; 96374; 96375; 99283; J7030; A4216; J2405